=== PATIENT | male | born 2000 | race Caucasian/White ===

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

== ENCOUNTER 2021-04-05 15:21 | Observation (INO) | payer OTHER ==
[2021-04-05] MEDS ORDERED: IPRATROPIUM-ALBUTEROL 3 ML NEB INHALATION STA (16:18)
[2021-04-05] MEDS ORDERED: methylPREDNISolone SOD SUCCI 125 MG/2 ML VIAL IV STA (16:19)
[2021-04-05 16:31] LABS: Basophils # (A) 0.1 k/uL (0-0.2); Basophils % (A) 0 %; Eosinophils # (A) 0.2 k/uL (0-0.7); Eosinophils % (A) 1 %; HCT 48.6 % (39.0-53.0); HGB 16.7 gm/dL (13.0-17.5); Lymphocytes # (A) 1.1 k/uL (1.0-4.8); Lymphocytes % (A) 4 %; MCH 30.1 pg (25.0-35.0); MCHC 34.3 g/dL (31.0-37.0); MCV 87.5 fL (80.0-100.0); Mean Platelet Volume 6.7; Monocytes # (A) 0.5 k/uL (0-1.0); Monocytes % (A) 2 %; Neutrophils # (A) 23.9 k/uL (1.3-7.7); Neutrophils % (A) 93 %; Platelet Count 354 k/uL (150-450); RBC 5.55 m/uL (4.30-5.90); RDW 13.9 % (11.5-15.5); WBC 25.8 k/uL (4.0-11.0)
[2021-04-05 16:40] LABS: ALT 17 U/L (4-49); AST 24 U/L (17-59); African American GFR (CKD) >90 (>60 ml/min/1.73 sqM); Alkaline Phosphatase 133 U/L (38-126); Anion Gap 13 mmol/L; Blood Urea Nitrogen 10 mg/dL (9-20); Calcium 10.3 mg/dL (8.4-10.2); Carbon Dioxide 22 mmol/L (22-30); Chloride 107 mmol/L (98-107); Glucose 97 mg/dL (74-99); Non-African American GFR(CKD) >90 (>60 ml/min/1.73 sqM); Potassium 4.4 mmol/L (3.5-5.1); Sodium 142 mmol/L (137-145); Total Bilirubin 1.6 mg/dL (0.2-1.3); Total Protein 7.4 g/dL (6.3-8.2)
--- NOTE | 2021-04-05 17:19 | XR ---
EXAMINATION TYPE: XR chest 2V DATE OF EXAM: 04/05/2021 COMPARISON: 11/24/2020 HISTORY: Asthma. Short of breath. TECHNIQUE: 3 views FINDINGS: There is wedge-shaped area of increased density in the right middle lobe. The other lung fi elds are clear. Heart and mediastinum are normal. There are no hilar masses. There is posterior fusio n surgery in the upper thoracic spine. There is no pleural effusion. IMPRESSION: There is right middle lobe pneumonia which appears new compared to old exam. Normal heart .
[2021-04-05] MEDS ORDERED: cefTRIAXone IN SWFI 1,000 MG/10 ML SYRINGE IVP STA (17:28)
[2021-04-05] MEDS ORDERED: AZITHROMYCIN 500 MG in SODIUM CHLORIDE 0.9% 250 ML IVPB STA (17:28)
[2021-04-05] MEDS ORDERED: LORazepam 2 MG/ML INJ IV PRN (17:46)
[2021-04-05] MEDS ORDERED: ONDANSETRON 4 MG/2 ML VIAL IVP PRN (17:46)
[2021-04-05] MEDS ORDERED: IBUPROFEN 400 MG TAB PO PRN (17:46)
[2021-04-05] MEDS ORDERED: ACETAMINOPHEN TAB 325 MG TAB PO PRN (17:46)
[2021-04-05] MEDS ORDERED: NALOXONE 0.4 MG/ML 1 ML VIAL IV PRN (17:46)
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
[2021-04-05] MEDS: SODIUM CHLORIDE 0.9% 1,000 ML IV SCH (18:42)
[2021-04-05] MEDS: ALBUTEROL NEBULIZED 2.5 MG/3 ML INHALATION SCH (19:48)
[2021-04-05] MEDS: HEPARIN SODIUM,PORCINE/PF 5,000 UNIT/0.5 ML SYRINGE SQ SCH (20:18)
[2021-04-05] MEDS: MONTELUKAST 10 MG TAB PO SCH (20:18)
[2021-04-05] MEDS: MEMANTINE 10 MG TAB PO SCH (20:18)
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
[2021-04-05] MEDS: methylPREDNISolone SOD SUCCI 125 MG/2 ML VIAL IV SCH (23:42)
[2021-04-06] MEDS: IPRATROPIUM-ALBUTEROL 3 ML NEB INHALATION PRN ×4 (00:18→23:35)
[2021-04-06] MEDS: methylPREDNISolone SOD SUCCI 125 MG/2 ML VIAL IV SCH ×3 (05:50→17:44)
[2021-04-06 06:50] LABS: African American GFR (CKD) >90 (>60 ml/min/1.73 sqM); Anion Gap 10 mmol/L; Blood Urea Nitrogen 14 mg/dL (9-20); Calcium 9.3 mg/dL (8.4-10.2); Carbon Dioxide 20 mmol/L (22-30); Chloride 109 mmol/L (98-107); Glucose 138 mg/dL (74-99); Non-African American GFR(CKD) >90 (>60 ml/min/1.73 sqM); Sodium 139 mmol/L (137-145)
[2021-04-06 06:54] LABS: Potassium 4.4 mmol/L (3.5-5.1)
[2021-04-06] MEDS: ALBUTEROL NEBULIZED 2.5 MG/3 ML INHALATION SCH ×4 (07:44→19:44)
[2021-04-06] MEDS: SODIUM CHLORIDE 0.9% 1,000 ML IV SCH (08:53)
[2021-04-06] MEDS: AZITHROMYCIN 500 MG TAB PO SCH (08:54)
[2021-04-06] MEDS: PANTOPRAZOLE 40 MG TABLET PO SCH (08:54)
[2021-04-06] MEDS: MEMANTINE 10 MG TAB PO SCH ×2 (08:54→21:11)
[2021-04-06] MEDS: HEPARIN SODIUM,PORCINE/PF 5,000 UNIT/0.5 ML SYRINGE SQ SCH ×2 (08:55→21:12)
[2021-04-06] MEDS ORDERED: cefTRIAXone 1,000 MG VIAL (IM USE) IM SCH (09:00)
[2021-04-06 09:18] LABS: Basophils # (A) 0.01 X 10*3/uL (0.00-0.10); Basophils % (A) 0.1 %; Eosinophils # (A) 0 X 10*3/uL (0.04-0.35); Eosinophils % (A) 0 %; HCT 45.7 % (39.6-50.0); HGB 15.4 g/dL (13.0-17.0); Lymphocytes # (A) 1.24 X 10*3/uL (0.90-5.00); Lymphocytes % (A) 12.2 %; MCH 30.5 pg (27.0-32.0); MCHC 33.7 g/dL (32.0-37.0); MCV 90.5 fL (80.0-97.0); Mean Platelet Volume 10.3 fL (9.5-12.2); Monocytes # (A) 0.16 X 10*3/uL (0.20-1.00); Monocytes % (A) 1.6 %; Neutrophils # (A) 8.69 X 10*3/uL (1.80-7.70); Neutrophils % (A) 85.1 %; Platelet Count 258 X 10*3/uL (140-440); RBC 5.05 X 10*6/uL (4.40-5.60); RDW 13.1 % (11.5-14.5)
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
[2021-04-06] MEDS: MULTIVITAMINS, THERA 1 EACH TAB PO SCH (11:57)
[2021-04-06 12:14] VITALS: BMI 18.4
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
[2021-04-06] MEDS: METOPROLOL SUCCINATE (ER) 25 MG TAB.ER.24H PO SCH (16:20)
[2021-04-06 17:31] LABS: Glucose,Whole Blood 148 mg/dL (75-99)
[2021-04-06] MEDS: INSULIN ASPART (NovoLOG) 100 UNIT/ML VIAL SQ SCH ×2 (17:44→21:11)
[2021-04-06 20:36] LABS: Glucose,Whole Blood 136 mg/dL (75-99)
[2021-04-06] MEDS: MONTELUKAST 10 MG TAB PO SCH (21:11)
[2021-04-07] MEDS: methylPREDNISolone SOD SUCCI 125 MG/2 ML VIAL IV SCH ×5 (00:35→23:59)
[2021-04-07] MEDS: IPRATROPIUM-ALBUTEROL 3 ML NEB INHALATION PRN (03:35)
[2021-04-07 07:22] LABS: Glucose,Whole Blood 136 mg/dL (75-99)
[2021-04-07] MEDS: PANTOPRAZOLE 40 MG TABLET PO SCH (07:55)
[2021-04-07] MEDS: INSULIN ASPART (NovoLOG) 100 UNIT/ML VIAL SQ SCH ×4 (07:55→20:23)
[2021-04-07] MEDS: ALBUTEROL NEBULIZED 2.5 MG/3 ML INHALATION SCH ×4 (08:03→21:32)
[2021-04-07] MEDS: HEPARIN SODIUM,PORCINE/PF 5,000 UNIT/0.5 ML SYRINGE SQ SCH ×2 (08:27→20:38)
[2021-04-07] MEDS: MEMANTINE 10 MG TAB PO SCH ×2 (08:28→20:38)
[2021-04-07] MEDS: METOPROLOL SUCCINATE (ER) 25 MG TAB.ER.24H PO SCH (08:28)
[2021-04-07] MEDS: AZITHROMYCIN 500 MG TAB PO SCH (08:28)
--- NOTE | 2021-04-07 11:24 | XR ---
EXAMINATION TYPE: XR chest 2V DATE OF EXAM: 04/07/2021 COMPARISON: 04/05/2021 TECHNIQUE: PA and lateral views submitted. HISTORY: Cough, pneumonia FINDINGS: There is persistent right middle lobe consolidation best noted on the lateral view.. Postsurgical ch tigre overlying the vertebral column. No overt failure or pneumothorax. There is subcutaneous air sarah g the neck and left axilla. Hyperinflation suggests COPD. IMPRESSION: 1. Right middle lobe consolidation best seen on the lateral view suggestive of pneumonia. There appea rs to be air overlying the soft tissues of the neck and left axilla could be artifactual correlate cl inically to exclude subcutaneous emphysema. Correlate clinically.
[2021-04-07 12:09] LABS: Glucose,Whole Blood 154 mg/dL (75-99)
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
[2021-04-07] MEDS: MULTIVITAMINS, THERA 1 EACH TAB PO SCH (12:53)
[2021-04-07 17:20] LABS: Glucose,Whole Blood 163 mg/dL (75-99)
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
[2021-04-07 20:20] LABS: Glucose,Whole Blood 123 mg/dL (75-99)
[2021-04-07] MEDS: MONTELUKAST 10 MG TAB PO SCH (20:38)
[2021-04-08 02:59] LABS: Mycoplasma IgG Antibody (EIA) 1.55 INDEX (<=0.90); Mycoplasma IgM Antibody 0.45 INDEX (<=0.90)
[2021-04-08 03:14] VITALS: TEMP 97.8
[2021-04-08] MEDS: methylPREDNISolone SOD SUCCI 125 MG/2 ML VIAL IV SCH (05:37)
[2021-04-08 06:59] LABS: Glucose,Whole Blood 133 mg/dL (75-99)
[2021-04-08] MEDS: ALBUTEROL NEBULIZED 2.5 MG/3 ML INHALATION SCH ×2 (07:33→10:42)
[2021-04-08] MEDS: PANTOPRAZOLE 40 MG TABLET PO SCH (07:57)
[2021-04-08 07:59] VITALS: BP 96/47; RESP 16
[2021-04-08] MEDS: METOPROLOL SUCCINATE (ER) 25 MG TAB.ER.24H PO SCH (08:36)
[2021-04-08] MEDS: HEPARIN SODIUM,PORCINE/PF 5,000 UNIT/0.5 ML SYRINGE SQ SCH (08:37)
[2021-04-08] MEDS: MEMANTINE 10 MG TAB PO SCH (08:37)
[2021-04-08] MEDS: INSULIN ASPART (NovoLOG) 100 UNIT/ML VIAL SQ SCH (08:37)
[2021-04-08] MEDS: AZITHROMYCIN 500 MG TAB PO SCH (08:51)
[2021-04-08 10:49] LABS: Basophils # (A) 0.01 X 10*3/uL (0.00-0.10); Basophils % (A) 0.1 %; Eosinophils # (A) 0 X 10*3/uL (0.04-0.35); Eosinophils % (A) 0 %; HCT 42.7 % (39.6-50.0); HGB 14.3 g/dL (13.0-17.0); Lymphocytes # (A) 1.22 X 10*3/uL (0.90-5.00); Lymphocytes % (A) 7.1 %; MCH 30.1 pg (27.0-32.0); MCHC 33.5 g/dL (32.0-37.0); MCV 89.9 fL (80.0-97.0); Mean Platelet Volume 10.4 fL (9.5-12.2); Monocytes # (A) 0.31 X 10*3/uL (0.20-1.00); Monocytes % (A) 1.8 %; Neutrophils # (A) 15.57 X 10*3/uL (1.80-7.70); Neutrophils % (A) 90.2 %; Platelet Count 280 X 10*3/uL (140-440); RBC 4.75 X 10*6/uL (4.40-5.60); RDW 13.2 % (11.5-14.5); WBC 17.24 X 10*3/uL (4.50-10.00)
[2021-04-08 10:52] VITALS: PULSE 78
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
== END 2021-04-08 13:28 | disposition home or self-care (01) ==
LOC: EC 15:21 → 4SSUR 17:19 → 6NMEDSUR 20:59 → OBSVTOIN 04-06 14:31 → INTOOBSV 04-06 14:31 → UNDODISIN 04-08 13:28
PROVIDERS: ADMIT Internal Medicine; ATTEND Internal Medicine
DX: J18.9 Pneumonia, unspecified organism (principal); J45.51 Severe persistent asthma with (acute) exacerbation; F32.9 Major depressive disorder, single episode, unspecified; F41.9 Anxiety disorder, unspecified; Z98.1 Arthrodesis status; Z20.822 Contact with and (suspected) exposure to COVID-19; Z91.19 Patient's noncompliance with other medical treatment and regimen; Z87.891 Personal history of nicotine dependence; Z87.01 Personal history of pneumonia (recurrent); Z98.890 Other specified postprocedural states; Z79.899 Other long term (current) drug therapy; Z88.0 Allergy status to penicillin; T78.40XA Allergy, unspecified, initial encounter; Z84.89 Family history of other specified conditions
CPT/HCPCS: 96376 ×5; 96366 ×3; 96367; 96372 ×4; 96365; 96375; 99285; 36415; 94640 ×7; 93005; 86738 ×2; 80053; 80048; 87449; 83605; 85025 ×3; 87040; 86003; 87635; 71046 ×2; G0378 ×4; J2930 ×4; J0456; J0696 ×4; J1644 ×4; 96374